=== PATIENT | male | born 1980 | race Caucasian/White ===

== ENCOUNTER → 2018-05-25 | Outpatient (CLI) | payer BC ==
--- NOTE | 2018-05-25 12:43 | CONS ---
CONSULTATION DATE OF SERVICE: 05/25/2018 A 37-year-old gentleman who has been evaluated in the Sleep Center for possible obstructive sleep apnea-hypopnea syndrome. HISTORY OF PRESENT ILLNESS/SLEEP WAKE EVALUATION: Patient usual sleep schedule on weekdays from 10 am until 5:30 pm and on weekends from 2 a.m. until 12 noon. Sometimes patient has problem with falling asleep. He sleeps with his with loud snoring, witnessed episodes of stopped breathing during the sleep up to the level when his wake him up because he stops breathing. He also wakes up with episodes of gasping for air, sweating, panic attack, heartburn, nocturia around 2 times per sleep. He does have TV set in bedroom, usually sleeps on the side position, opens his mouth during the sleep. After sleep, he wakes up tired, has difficulties to pay attention, worry about his sleep, has episodes of depression and anxiety. Patient feels significantly sleepy. [place] Sleepiness Scale is in extremely high range of 21. 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 PAST MEDICAL HISTORY: None. PAST SURGICAL HISTORY: Left index finger surgery, hernia repair. MEDICATIONS: None. SOCIAL HISTORY: Positive for smoking for 3 years, quit 20 years ago. Alcohol consumption occasional. FAMILY HISTORY: Hypertension, hyperlipidemia, arthritis, sleep apnea, snoring, acid reflux, diabetes. REVIEW OF SYSTEMS: Awakenings from sleep, significant excessive daytime sleepiness. PHYSICAL EXAM: gentleman without distress, BP 131/85, HR 93, RR 16, height 5, 7 inches, weight 278.8, body mass index 43.5, temperature 98.4, oxygen saturation at room air 94%. OROPHARYNX: Extremely low position of soft palate. Mallampati 4, restriction of nasal breathing, possibly nasal septum deviation. Wide neck 19-1/4 inches in circumference. ABDOMEN: Obese. Neck Supple, no JVD. Thyroid is not palpable. LUNGS Clear to percussion and to auscultation. Good air exchange. No wheezing or rhonchi. HEART S1, S2 regular. No murmurs, gallops, or rubs. EXTREMITIES No clubbing or cyanosis. COUNSELING DIRECTOR Awake, alert, and oriented X3. Cranial nerves 2 to 7 intact. There is no fasciculation or atrophy. noted. No focal deficits observed. IMPRESSION: 1. Loud snoring, awakenings from sleep with gasping for air, witnessed episodes of stopped breathing during the sleep by . Extremely low position of soft palate, a wide neck, significant excessive sleepiness, obstructive sleep apnea-hypopnea syndrome. 2. 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 3. Extremely high sleepiness with [place] Sleepiness Scale of 21 and positive history of hypnagogical hallucinations dictate necessity to include narcolepsy in the differential diagnosis. 4. Obesity, body mass index 43.5. 5. Restriction of nasal breathing, nasal septal deviation. 6. Status post hernia repair. 7. Status post left index surgery. PLAN: 1. Home sleep apnea test for evaluation of patient breathing during the sleep. 2. Following plan after reviewing results of home sleep study. 3. Losing weight. 4. Sleep hygiene with regular time in bed for at least 8 hours. 5. No driving if feeling sleepiness. 6. Status post right hand surgery. 7. Patient could use dark glasses outside after going from work home in the morning to improve his ability to fall asleep after the small animal caretaker. 8. Losing weight. Thank you very much for referring this patient for consultation. Sincerely, Steve Napier MD, PhD, FAASM Diplomat of [employer] Brim Pouncing Machine Operator of [facility] [place] MMODL / IJN: [id number] /
== END ==
LOC: SLEEP 11:23
PROVIDERS: ATTEND Internal Medicine
DX: G47.33 Obstructive sleep apnea (adult) (pediatric) (principal); R44.2 Other hallucinations; E66.9 Obesity, unspecified; J34.2 Deviated nasal septum; Z98.890 Other specified postprocedural states; Z68.41 Body mass index [BMI] 40.0-44.9, adult; Z87.891 Personal history of nicotine dependence
CPT/HCPCS: 99211

== ENCOUNTER → 2018-09-07 | Outpatient (CLI) | payer BC ==
--- NOTE | 2018-09-07 15:51 | PN ---
PROGRESS NOTE DATE OF SERVICE: 09/07/2018 This 38-year-old gentleman has been followed in Sleep Center for treatment of obstructive sleep apnea-hypopnea syndrome. Recently the patient had a home sleep apnea test which showed severe sleep apnea with apnea-hypopnea index 43.6 and oxygen desaturation to 55%. I discussed the results of his sleep study with the patient in detail. Then he had titration in the office. We started with CPAP, and the best results were reached on BiPAP with a pressure of 18/14 cm of water. Patient was started on treatment with BiPAP, but he has difficulties with the pressure. At the beginning when he is starting to use the machine, he feels that the pressure is too low, and then in the middle of the night he feels that the pressure is too high. [place] Sleepiness Scale today is extremely high at 24. I checked patient's BiPAP unit. BiPAP pressure is 18/14 cm of water, but unfortunately the patient used it only 3 nights out of 30 nights, and with this usage his apnea- hypopnea index was reduced to only 0.9, which is absolutely perfect, but the leak factor was very significant at 58 L/minute. The patient is using a nasal mask and possibly opens his mouth during the night. MEDICATIONS: None. PHYSICAL EXAMINATION: GENERAL: A pleasant patient in no distress. VITAL SIGNS: BP 145/79, HR about 100, RR 16, weight 278, temperature 98.6, oxygen saturation at room air 94%. HEENT: PERRLA, EOMI. Evaluation of oropharynx showed tongue protrudes midline. Extremely low position of soft palate. NECK: Supple. No JVD. Thyroid is not palpable. LUNGS: Clear to percussion and to auscultation. Good air exchange. No wheezing or rhonchi. HEART: S1, S2 regular. No murmurs, gallops or rubs. ABDOMEN: Obese. EXTREMITIES: No clubbing or cyanosis. STRATEGIC DEBRIEFING SPECIALIST: Awake, alert, and oriented X3. Cranial nerves 2 to 7 intact. There is no fasciculation or atrophy. noted. No focal deficits observed. IMPRESSION: 1. Severe obstructive sleep apnea-hypopnea syndrome. At present the patient has difficulties with BiPAP. He feels that the pressure is too high, but when he is starting to use the equipment at the beginning of the night, it is too low. 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 3. Obesity. 4. Restriction of nasal breathing; possibly nasal septum deviation. 5. Status post hernia repair. 6. Status post left index finger surgery. PLAN: 1. I will change the pressure of the RAMP starting from 7 cm of water instead of 4, and I will decrease the BiPAP pressure to 14/10 cm of water. 2. Follow-up visit in 6 weeks. 3. Losing weight. 4. Sleep hygiene with regular time in bed for at least 8 hours. 5. No driving if feeling any sleepiness. Thank you very much for allowing me to participate in the management of your patient. Sincerely, Steve Napier MD, PhD, FAASM Diplomat of [employer] Military Science Teacher of [facility] [place] MMODL / ELGINN: [id number] /
== END | disposition home or self-care (01) ==
LOC: SLEEP 14:52
PROVIDERS: ATTEND Internal Medicine
DX: G47.33 Obstructive sleep apnea (adult) (pediatric) (principal); E66.9 Obesity, unspecified; Z99.89 Dependence on other enabling machines and devices; Z98.890 Other specified postprocedural states

== ENCOUNTER → 2018-10-19 | Outpatient (CLI) | payer BC ==
--- NOTE | 2018-10-19 13:00 | SFUN ---
SLEEP CENTER FOLLOW UP NOTE DATE OF SERVICE: 10/19/2018 This 38-year-old gentleman has been followed in sleep center for treatment of obstructive sleep apnea-hypopnea syndrome. The patient has severe sleep apnea and several months ago she was started on treatment with a BiPAP. During previous visit in August of 2018, the patient showed very low compliance with treatment. It was only 3 nights out of 30 nights. I adjusted the pressure in the machine and now the patient does not have any problem with the pressure, likes his machine. Feels better during the sleep and during the day. [place] Sleepiness Scale today is 0. I checked his BiPAP unit. BiPAP pressure is 14/10 cm of water. Patient uses it 24 out of 30 nights. Average usage is 3.4 hours. Apnea-hypopnea index reading from the machine only 0.7. PHYSICAL EXAMINATION: During physical exam, patient in no distress. VITAL SIGNS: BP 124/75, HR 89, RR 16, height 5 feet 7 inches, weight 273.4, temperature 97.3, oxygen saturation at room air 95%. HEENT: PERRLA, EOMI. Oropharynx extremely low soft palate, Mallampati 4. NECK: Supple, no JVD. Thyroid is not palpable. LUNGS: Clear to percussion and to auscultation. Good air exchange. No wheezing or rhonchi. HEART: S1, S2 regular. No murmurs, gallops, or rubs. ABDOMEN: Obese. EXTREMITIES: No clubbing or cyanosis. COSTUMER: Awake, alert, and oriented X3. Cranial nerves 2 to 7 intact. There is no fasciculation or atrophy. noted. No focal deficits observed. IMPRESSION: 1. Severe obstructive sleep apnea-hypopnea syndrome, present on full control with BiPAP. Patient benefitting from treatment. 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 3. Obesity. 4. Some restriction of nasal breathing; possibly nasal septum deviation. 5. Status post hernia repair. 6. Status post left index finger surgery. PLAN: 1. Patient will continue to use BiPAP equipment with the same regimen 14/10 cm of water every night for the whole night. 2. Losing weight. 3. Sleep hygiene with regular time in bed for at least 7-1/2 hours. 4. No driving if feeling sleepiness. Thank you very much for allowing me to participate in management of your patient. Sincerely, Steve Napier, MD, PhD, FAASM Diplomat of [employer] Language Specialist of [facility] [place] MMMARY JO / STEFAN: [id number] /
== END | disposition home or self-care (01) ==
LOC: SLEEP 10:20
PROVIDERS: ATTEND Internal Medicine
DX: G47.33 Obstructive sleep apnea (adult) (pediatric) (principal); E66.9 Obesity, unspecified; Z68.41 Body mass index [BMI] 40.0-44.9, adult; Z99.89 Dependence on other enabling machines and devices; Z98.890 Other specified postprocedural states